=== PATIENT | male | born 1945 | race Caucasian/White ===

== ENCOUNTER 2019-09-16 10:37 | Emergency (ER) | payer MEDICARE ==
--- NOTE | 2019-09-16 12:31 | RAD ---
Exam: Chest one view HISTORY:Fever Comparison: None FINDINGS: Cardiac silhouette: Normal Aorta: Atherosclerosis Pulmonary vessels: Normal Costophrenic angles: Clear LUNGS: No masses or consolidation. Pneumothorax: None Osseous abnormalities: None IMPRESSION: No acute cardiopulmonary process. Atherosclerosis.
[2019-09-16] MEDS ORDERED: Phenergan/Codeine 10-6.25mg/5ml UDCUP ONE (13:20)
== END 2019-09-16 13:27 | disposition home or self-care (01) ==
LOC: MADERS 10:37
DX: J10.1 Influenza due to other identified influenza virus with other respiratory manifestations (principal); E78.5 Hyperlipidemia, unspecified; E78.00 Pure hypercholesterolemia, unspecified; I10 Essential (primary) hypertension; M10.9 Gout, unspecified; G47.00 Insomnia, unspecified; Z79.899 Other long term (current) drug therapy
CPT/HCPCS: 71045; 87804; 94640; J7620